=== PATIENT | female | born 1950 | race Caucasian/White ===

== ENCOUNTER 2017-09-16 15:04 | Emergency (ER) | payer MEDICARE ==
[2017-09-16 16:17] LABS: BASO % 0.7 % (0-6); EOS % 0.7 % (0-6); GRAN % 43.3 % (47-80); HEMATOCRIT 37.8 % (35.0-47.0); HEMOGLOBIN 12.2 gm/dl (11.6-16.0); MEAN CELL VOLUME 90.2 fl (81-97); MEAN CORPUSCULAR HEMOGLOBIN 29.1 pg (27-33); MEAN CORPUSCULAR HGB CONC 32.3 g/dl (32-36); MEAN PLATELET VOLUME 10.3 fl (7.4-10.4); MONO % 9.3 % (0-9); PLATELET COUNT 280 K/uL (130-400); RED BLOOD COUNT 4.19 M/uL (3.80-5.40); RED CELL DISTRIBUTION WIDTH 13.2 % (11.5-14.5); WHITE BLOOD COUNT W/O DIFF 5.8 K/uL (4.2-12.2)
[2017-09-16 16:32] LABS: BLOOD UREA NITROGEN 13 mg/dL (8-23); CREATININE 0.8 mg/dL (0.5-0.9); EST GLOMERULAR FILTRATION RATE > 60 mL/min
[2017-09-16 16:35] LABS: GLUCOSE,RANDOM 113 mg/dL (74-109)
--- NOTE | 2017-09-16 16:53 | Emergency Department Record ---
History of Present Illness - General Chief complaint: Weakness Stated complaint: weak Time Seen by Provider: 09/16/17 15:57 Source: Patient Mode of Arrival: Ambulatory Limitations: No limitations - History of Present Illness Initial comments: pt had near syncope when she slipped to the floor. she was extremely upset because her son had just passed. she states this has happened to her in the past when she has been upset in the past. she denies any pain or injury when she slipped to the floor. Onset/Timin -: Minutes(s) Severity: Mild Severity scale (1-10): 1 Consistency: Now resolved Context: Depression Associated Symptoms: Denies other symptoms - [place] Coma Scale Eye Response: (4) Open spontaneously Motor Response: (6) Obeys commands Verbal Response: (5) Oriented Rashid Total: 15 - Related Data Home Medications Medication Instructions Recorded Confirmed Last Taken Duloxetine HCl [Cymbalta] 20 mg PO DAILY 09/16/17 09/16/17 1 Day Ago ~09/15/17 Fluoxetine HCl [Prozac] 40 mg PO DAILY 09/16/17 09/16/17 1 Day Ago ~09/15/17 Furosemide [Lasix] 20 mg PO DAILY 09/16/17 09/16/17 1 Day Ago ~09/15/17 Lorazepam [Ativan] 0.5 mg PO TID 09/16/17 09/16/17 1 Day Ago ~09/15/17 Omeprazole [Prilosec] 20 mg PO DAILY 09/16/17 09/16/17 1 Day Ago ~09/15/17 Quetiapine Fumarate [Seroquel] 100 mg PO DAILY 09/16/17 09/16/17 1 Day Ago ~09/15/17 Previous Rx's Medication Instructions Recorded Lorazepam [Ativan] 0.5 mg PO BID PRN #10 tablet 09/16/17 Allergies Allergy/AdvReac Type Severity Reaction Status Date / Time latex Allergy RASH Verified 09/16/17 16:28 Penicillins Allergy RASH Verified 09/16/17 16:28 Travel Screening - Travel/Exposure Within Last 30 Days Have you traveled within the last 30 days?: No - Travel/Exposure Within Last Year Have you traveled outside the [place] in the last year?: No - Additonal Travel Details Have you been exposed to anyone with a communicable illness?: No - Travel Symptoms Symptom Screening: None Review of Systems Reviewed: No additional complaints except as noted below Constitutional: Reports: As per HPI, Weakness. Denies: Chills, Fever, Malaise, Night sweats, Weight change Eyes: Reports: As per HPI. Denies: Eye discharge, Eye pain, Photophobia, Vision change ENT: Reports: As per HPI. Denies: Congestion, Dental pain, Ear pain, Epistaxis , Hearing loss, Throat pain Respiratory: Reports: As per HPI. Denies: Cough, Dyspnea, Hemoptysis, Stridor, Wheezes Cardiovascular: Reports: As per HPI. Denies: Arrhythmia, Chest pain, Dyspnea on exertion, Edema, Murmurs, Orthopnea, Palpitations, Paroxysmal nocturnal dyspnea, Rheumatic Fever, Syncope Endocrine: Reports: As per HPI. Denies: Fatigue, Heat or cold intolerance, Polydipsia, Polyuria Gastrointestinal: Reports: As per HPI. Denies: Abdominal pain, Constipation, Diarrhea, Hematemesis, Hematochezia, Melena, Nausea, Vomiting Genitourinary: Reports: As per HPI. Denies: Abnormal menses, Discharge, Dyspareunia, Dysuria, Frequency, Hematuria, Incontinence, Retention, Urgency Musculoskeletal: Reports: As per HPI. Denies: Arthralgia, Back pain, Gout, Joint swelling, Myalgia, Neck pain Skin: Reports: As per HPI. Denies: Bruising, Change in color, Change in hair/ nails, Lesions, Pruritus, Rash Neurological: Reports: As per HPI. Denies: Abnormal gait, Confusion, Headache, Numbness, Paresthesias, Seizure, Tingling, Tremors, Vertigo, Weakness Psychiatric: Reports: As per HPI. Denies: Anxiety, Auditory hallucinations, Depression, Homicidal thoughts, Suicidal thoughts, Visual hallucinations Hematological/Lymphatic: Reports: As per HPI. Denies: Anemia, Blood Clots, Easy bleeding, Easy bruising, Swollen glands Past Medical History - SOCIAL HISTORY Smoking Status: Former smoker Alcohol Use: None Drug Use: None - RESPIRATORY Hx Asthma: No - CARDIOVASCULAR Hx Cardio Disorders: No - NEURO Hx Dementia: (testing) - GI Hx Hiatal Hernia: Yes (required surgery) - Hx Genitourinary Disorders: No - ENDOCRINE Hx Diabetes: No Hx Thyroid Disease: No - MUSCULOSKELETAL Hx Arthritis: Yes (knees) - PSYCH Hx Anxiety: Yes Hx Depression: Yes (major) Comment:: bi-polar - HEMATOLOGY/ONCOLOGY Hx Hematology/Oncology Disorders: No Family Medical History Any Significant Family History?: Yes Physical Exam - General General Appearance: Alert, Oriented x3, Cooperative, Mild distress - Head Head exam: Normal inspection - Eye Eye exam: Normal appearance, PERRL, EOMI Pupils: Normal accommodation - ENT ENT exam: Normal exam, Mucous membranes moist, Normal external ear exam, Normal orophraynx Ear exam: Normal external inspection. negative: External canal tenderness Nasal Exam: Normal inspection. negative: Discharge, Sinus tenderness Mouth exam: Normal external inspection, Tongue normal Teeth exam: Normal inspection. negative: Dental caries Throat exam: Normal inspection. negative: Tonsillar erythema, Tonsillar exudate - Neck Neck exam: Normal inspection, Full ROM. negative: Tenderness - Respiratory Respiratory exam: Normal lung sounds bilaterally. negative: Respiratory distress - Cardiovascular Cardiovascular Exam: Regular rate, Normal rhythm, Normal heart sounds - GI/Abdominal GI/Abdominal exam: Soft, Normal bowel sounds. negative: Tenderness - Rectal Rectal exam: Deferred - exam: Deferred - Extremities Extremities exam: Normal inspection, Full ROM, Normal capillary refill. negative: Tenderness - Back Back exam: Reports: Normal inspection, Full ROM. Denies: Muscle spasm, Rash noted, Tenderness - Neurological Neurological exam: Alert, CN II-XII intact, Normal gait, Oriented X3 - Psychiatric Psychiatric exam: Anxious, Depressed, Normal mood - Skin Skin exam: Dry, Intact, Normal color, Warm Course Vital Signs 09/16/17 16:15 Temperature 98.1 F Pulse Rate 98 H Respiratory 16 Rate Blood Pressure 115/87 Pulse Ox 95 Medical Decision Making - Lab Data Result diagrams: 09/16/17 15:40 09/16/17 15:40 Lab Results 09/16/17 09/16/17 Range/Units 15:40 15:40 WBC 5.8 (4.2-12.2) K/uL RBC 4.19 (3.80-5.40) M/uL Hgb 12.2 (11.6-16.0) gm/dl Hct 37.8 (35.0-47.0) % MCV 90.2 (81-97) fl MCH 29.1 (27-33) pg MCHC 32.3 (32-36) g/dl RDW 13.2 (11.5-14.5) % Plt Count 280 (130-400) K/uL MPV 10.3 (7.4-10.4) fl Gran % 43.3 L (47-80) % Lymphocytes % 46.0 H (16-45) % Monocytes % 9.3 H (0-9) % Eosinophils % 0.7 (0-6) % Basophils % 0.7 (0-6) % Sodium 142 (136-145) mmol/L Potassium 3.4 (3.4-4.5) mmol/L Chloride 97 L (98-107) mmol/L Carbon Dioxide 29.0 (22-29) mmol/L Anion Gap 16.0 (7-16) BUN 13 (8-23) mg/dL Creatinine 0.8 (0.5-0.9) mg/dL Estimated GFR > 60 mL/min Random Glucose 113 H (74-109) mg/dL Calcium 9.5 (8.8-10.2) mg/dL Troponin T < 0.010 (0-0.010) ng/mL Disposition Disposition: Discharge Clinical Impression: Near syncope, Grief at loss of child Disposition: Home, Self-Care Condition: (1) Good Instructions: Syncope (ED), Grief and Loss (ED) Additional Instructions: follow up with family doctor. return sooner if worse. Prescriptions: Lorazepam [Ativan] 0.5 mg PO BID PRN #10 tablet PRN Reason: Anxiety Forms: Patient Portal Access Quality - Quality Measures Quality Measures: N/A - Blood Pressure Screening Does Patient Have Any of the Following: No Blood Pressure Classification: Pre-Hypertensive BP Reading Systolic Measurement: 115 Diastolic Measurement: 87 Screening for High Blood Pressure: < Pre-Hypertensive BP, F/U Documented > [ [id number]] Pre-Hypertensive Follow-up Interventions: Follow-up with rescreen every year.
[2017-09-16] MEDS ORDERED: LORAZEPAM 2 MG/ML VIAL IV ONE (20:45)
== END 2017-09-16 17:46 | disposition home or self-care (01) ==
LOC: ER 15:04
DX: R55 Syncope and collapse (principal); R53.1 Weakness; F43.29 Adjustment disorder with other symptoms
CPT/HCPCS: 99284 ×2; 96374; 85025; 80048; 84484; 93005; 93010; J2060